=== PATIENT | female | born 1965 | race Caucasian/White ===

== ENCOUNTER 2016-08-23 12:56 | Outpatient (CLI) | payer OTHER | END 2016-08-23 12:57 | disposition home or self-care (01) | DX: M85.89 Other specified disorders of bone density and structure, multiple sites (principal); Z78.0 Asymptomatic menopausal state ==

== ENCOUNTER 2017-05-08 09:35 | Outpatient (CLI) | payer OTHER ==
--- NOTE | 2017-05-08 11:49 | CT Report ---
CT OF THE SINUSES WITHOUT CONTRAST: 05/08/2017 CLINICAL INDICATION: Maxillary sinusitis. TECHNIQUE: Axial CT images of the paranasal sinuses were obtained without contrast. No previous CT is available for comparison. FINDINGS: There is minimal mucosal thickening in the left maxillary sinus. No air fluid levels are p resent. The frontal sinuses, ethmoid air cells, and sphenoid sinus are unremarkable. The ostiomeatal units are patent bilaterally. No osseous destruction is seen. The visualized orbital contents are unr emarkable. IMPRESSION: MINIMAL MUCOSAL THICKENING IN THE LEFT MAXILLARY SINUS. NO EVIDENCE OF ACUTE SINUSITIS. In accordance with CT protocol optimization, one or more of the following dose reduction techniques w ere utilized for this exam: automated exposure control, adjustment of mA and/or KV based on patient size, or use of iterative reconstructive technique. JOB #: [id number] EXT JOB #:[id number]
== END 2017-05-08 09:36 | disposition home or self-care (01) ==
LOC: DI 09:35
PROVIDERS: ATTEND Physician Assistant
DX: J01.01 Acute recurrent maxillary sinusitis (principal)
CPT/HCPCS: 70486

== ENCOUNTER 2017-06-23 08:49 | Outpatient (CLI) | payer OTHER ==
--- NOTE | 2017-06-26 16:23 | Mammography Report ---
DIGITAL SCREENING MAMMOGRAM: 06/23/2017 CLINICAL INDICATION: A 51-year-old nulliparous patient for screening. COMPARISON: 05/2016, 04/2015, 04/2014, 10/2012, 10/2011, 07/2010. TECHNIQUE: Routine CC and MLO projections were obtained of the breasts as well as bilateral laterall y exaggerated craniocaudal views. FINDINGS: Parenchymal tissue within both breasts is heterogeneously dense, which may lower the sensi tivity of mammography; however, there are no dominant masses, suspicious microcalcifications, or seco ndary signs of malignancy. In comparison to the previous studies, there are no significant changes. ASSESSMENT: NO MAMMOGRAPHIC EVIDENCE OF MALIGNANCY. NO SIGNIFICANT INTERVAL CHANGES. RECOMMENDATION: Screening mammography is recommended annually. BIRADS category 1 - negative. STANDARD QUALIFYING STATEMENTS 1. This examination was reviewed with the aid of Computed-Aided Detection (CAD). 2. A negative or benign imaging report should not delay biopsy if clinically suspicious findings are present. Consider surgical consultation if warranted. More than 5% of cancers are not identified by i maging. 3. Dense breasts may obscure an underlying neoplasm. JOB #: [id number] EXT JOB #:[id number]
== END 2017-06-23 08:50 | disposition home or self-care (01) ==
LOC: DI.N 08:49
PROVIDERS: ATTEND Physician Assistant
DX: Z12.31 Encounter for screening mammogram for malignant neoplasm of breast (principal)
CPT/HCPCS: 77067

== ENCOUNTER 2018-07-13 11:33 | Outpatient (CLI) | payer OTHER ==
--- NOTE | 2018-07-17 09:02 | Mammography Report ---
Reason: SCREENING MAMMO Procedure Date: 07/13/2018 Accession Number: [id number] / [id number] Procedure: MGN - Screening Mammo Dig Bilat CPT Code: FULL RESULT: EXAM: Screening Mammo Dig Bilat DATE: 07/13/2018 11:52 AM CLINICAL HISTORY: Screening. No reported personal or family history of breast cancer. TECHNIQUE: Bilateral CC and MLO views were obtained. COMPARISON: 06/23/2017 through 05/16/2014 FINDINGS: The breasts demonstrate heterogeneously dense fibroglandular parenchyma bilaterally. Bilateral breasts: There are no suspicious masses, calcifications or areas of distortion. IMPRESSION: Negative examination RECOMMENDATION: Routine annual screening unless otherwise clinically indicated. BI-RADS CATEGORY 1: Negative STANDARD QUALIFYING STATEMENTS: 1. This examination was reviewed with the aid of Computer-Aided Detection (CAD). 2. A negative or benign imaging report should not preclude biopsy if clinically suspicious findings are present. 3. Dense breasts may obscure an underlying neoplasm. 4. This examination was reviewed without the aid of 3D breast imaging (tomosynthesis).
== END 2018-07-13 11:34 | disposition home or self-care (01) ==
LOC: DI.N 11:33
DX: Z12.31 Encounter for screening mammogram for malignant neoplasm of breast (principal)
CPT/HCPCS: 77067

== ENCOUNTER 2020-04-21 12:37 | Outpatient (CLI) | payer OTHER ==
--- NOTE | 2020-04-22 14:13 | Mammography Report ---
BILATERAL DIGITAL SCREENING MAMMOGRAM 3D/2D: 04/21/2020 CLINICAL: Routine screening. Comparison is made to exams dated: 07/13/2018 mammogram, 06/23/2017 mammogram, 06/06/2016 mammogram, 05/28/2015 mammogram, 05/16/2014 mammogram, and 11/15/2012 mammogram - [facility]. There are scattered fibroglandular elements in both breasts. No significant masses, calcifications, or other findings are seen in either breast. There has been no significant interval change. IMPRESSION: NEGATIVE There is no mammographic evidence of malignancy. A 1 year screening mammogram is recommended. This exam was interpreted at Station ID: [id number]. NOTE: For mammograms, a report in lay terms will be sent to the patient. Approximately 15% of breast malignancies will not be visualized mammographically. In the management of a palpable breast mass, a negative mammogram must not discourage biopsy of a clinically suspicious lesion. Electronically Signed By: Usama Leggett M.D., jr/catarino:04/21/2020 13:19:07 ACR BI-RADS Category 1: Negative 3341F PARENCHYMAL PATTERN: (A) - The breast(s) demonstrate(s) scattered fibroglandular densities. BI-RADS CATEGORY: (1) - 1 RECOMMENDATION: (ANNUAL) - Recommend routine annual screening mammography. [id number] 1 year screening LATERALITY: (B)
== END 2020-04-21 12:38 | disposition home or self-care (01) ==
LOC: DI.N 12:37
PROVIDERS: ATTEND Nurse Practitioner Family
DX: Z12.31 Encounter for screening mammogram for malignant neoplasm of breast (principal)
CPT/HCPCS: 77063; 77067

== ENCOUNTER 2020-05-04 12:11 | Emergency (ER) | payer OTHER ==
--- NOTE | 2020-05-04 14:23 | ED Physician Documentation ---
History of Present Illness - Stated complaint Stated Complaint: LT SIDE PX/BRUISING - Chief complaint Chief Complaint: Trauma Ch/Bk - History obtained from History obtained from: Patient - History of Present Illness Timing: Today Pain level max: 8 Pain level now: 7 - Additonal information Additional information: 54 year old female injured her left shoulder and L thigh When she fell down the stairs at work yesterday. Worse with movement, better with rest. No head, neck, back pain. No loss of consciousness. States has bruising to the left thigh. No loss of bowel or bladder control. Review of Systems Constitutional: denies: Fever, Chills Respiratory: denies: Cough GI: denies: Vomiting, Diarrhea Skin: denies: Rash Musculoskeletal: denies: Neck pain, Back pain Neurologic: denies: Headache PD PAST MEDICAL HISTORY - Past Medical History Past Medical History: Yes Respiratory: Asthma Musculoskeletal: Scoliosis, Other Derm: Other Other Past Medical History: Lumbar Deg disc dx, Atopic dermatitis - Past Surgical History Past Surgical History: Yes Ortho: Other HEENT: Other - Present Medications Home Medications: Ambulatory Orders Medication Instructions Recorded Confirmed HYDROcod/ACETAM 5/325 [[place] 5/325] 1 - 2 ea PO Q6H PRN #14 tablet 05/04/20 Meloxicam [Mobic] 7.5 mg PO BID PRN #20 tablet 05/04/20 - Allergies Allergies/Adverse Reactions: Allergies Allergy/AdvReac Type Severity Reaction Status Date / Time iodine Allergy Anaphylaxis Verified 05/04/20 12:28 - Social History Does the pt smoke?: No Smoking Status: Never smoker Does the pt drink ETOH?: Yes ETOH Use: Wine Does the pt have substance abuse?: No - Immunizations Immunizations are current?: Yes - POLST Patient has POLST: No PD ED PE NORMAL - Vitals Vital signs reviewed: Yes - General General: Alert and oriented X 3, No acute distress - HEENT HEENT: Moist mucous membranes - Neck Neck: Supple, no meningeal sign - Cardiac Cardiac: RRR - Respiratory Respiratory: No respiratory distress, Clear bilaterally - Abdomen Abdomen: Soft, Non tender, Non distended - Back Back: No spinal TTP (No midline tenderness to palpation or percussion. No step- off or deformity.) - Derm Derm: Warm and dry - Extremities Extremities: No calf tenderness / cord - Neuro Neuro: Alert and oriented X 3 - Psych Psych: Normal mood, Normal affect - Free text exam Free text exam: Tender to palpation over the left shoulder. No deformity. Full range of motion present. Tender near the AC joint. No crepitus. Neurovascular intact. Has a 4 x 10 cm ecchymotic area to the posterior left thigh. No tenderness over the hip self. Neurovascular intact. Otherwise normal extremity exam. Results - Vitals Vitals: Vital Signs - 24 hr 05/04/20 05/04/20 05/04/20 12:29 13:23 13:27 Temperature 36.7 C 36.7 C 36.8 C Heart Rate 107 H 107 H 92 Respiratory 18 18 18 Rate Blood Pressure 145/75 H 145/75 H 149/84 H O2 Saturation 99 99 100 05/04/20 05/04/20 05/04/20 14:38 15:56 16:04 Temperature 36.8 C 36.9 C 36.9 C Heart Rate 89 87 87 Respiratory 16 18 18 Rate Blood Pressure 132/71 H 144/81 H 145/80 H O2 Saturation 100 100 100 Oxygen O2 Source Room air - Rads (name of study) L shoulder xray Radiology: Prelim report reviewed, EMP read contemporaneously, See rad report L femur xray Radiology: Prelim report reviewed, EMP read contemporaneously, See rad report PD MEDICAL DECISION MAKING - ED course Complexity details: reviewed results, re-evaluated patient, considered differential, d/w patient ED course: 54-year-old female status post a fall at work yesterday. No significant x-ray findings. Ambulating well. Will prescribe pain medication for home. We will have her follow-up with her doctor for further care. L&I paperwork filled out. Patient counseled regarding signs and symptoms for which I believe and urgent re-evaluation would be necessary. Patient with good understanding of and agreement to plan and is comfortable going home at this time This document was made in part using voice recognition software. While efforts are made to proofread this document, sound alike and grammatical errors may occur. Departure - Departure Disposition: 01 Home, Self Care Clinical Impression: Contusion of soft tissue Condition: Good Instructions: ED Contusion Soft Tissue Follow-Up: SUNIL KITCHEN ARNP [Primary Care Provider] - Within 1 week Prescriptions: Meloxicam [Mobic] 7.5 mg PO BID PRN #20 tablet PRN Reason: Pain HYDROcod/ACETAM 5/325 [[place] 5/325] 1 - 2 ea PO Q6H PRN #14 tablet PRN Reason: Pain Comments: Return if you worsen. Your x-rays do not show any acute abnormality today. You will be very sore for the next several days. Follow-up with your doctor early next week in order to be released back to work. Do not drink alcohol or drive while on narcotic pain medicine. Note that many narcotic pain relievers also contain tylenol/acetaminophen. Please ensure that your total dose of acetaminophen from all sources does not exceed 3 grams (3000mg) per day. You may constipated on this medication, take a stool softener such as "Colace" twice a day while you are on it. Also recommend a ufgm-sjj-essayvn laxative such as senna or MiraLAX any day that you do not have a bowel movement. If you received narcotic pain medication in the emergency department, do not drive or operate machinery for the next 24 hours. Discharge Date/Time: 05/04/20 16:06
[2020-05-04] MEDS ORDERED: MELOXICAM 7.5 MG TABLET PO STA (14:42)
--- NOTE | 2020-05-04 15:36 | XRAY Report ---
PROCEDURE: Femur 2V LT INDICATIONS: fall, L thigh pain TECHNIQUE: 3 views of the femur were acquired. COMPARISON: None. FINDINGS: Bones: No fractures or dislocations. No suspicious bony lesions. Soft tissues: No suspicious soft tissue calcifications or masses. IMPRESSION: No visualized acute fracture or dislocation. However, occult injury cannot be excluded. Recommend angie rt interval imaging follow-up in 7-10 days as clinically indicated for additional evaluation. Reviewed by: Judith Bravo MD on 05/04/2020 3:34 PM PDT Approved by: Judith Bravo MD on 05/04/2020 3:34 PM PDT Station ID: [id number]
--- NOTE | 2020-05-04 15:37 | XRAY Report ---
PROCEDURE: Shoulder 3 View LT INDICATIONS: fall, shoulder pain TECHNIQUE: 3 views of the shoulder were acquired. COMPARISON: None. FINDINGS: Bones: No fractures or dislocations. No suspicious bony lesions. Visualized ribs appear intact. Soft tissues: No suspicious soft tissue calcifications. IMPRESSION: No visualized acute fracture or dislocation. However, occult injury cannot be excluded. Recommend short interval imaging follow-up in 7-10 days as clinically indicated for additional evalua tion. Reviewed by: Judith Bravo MD on 05/04/2020 3:35 PM PDT Approved by: Judith Bravo MD on 05/04/2020 3:35 PM PDT Station ID: [id number]
[2020-05-04 16:06] VITALS: BP 145/80
== END 2020-05-04 16:06 | disposition home or self-care (01) ==
LOC: ED 12:11
DX: S70.12XA Contusion of left thigh, initial encounter (principal); W10.9XXA Fall (on) (from) unspecified stairs and steps, initial encounter; Y99.0 Civilian activity done for income or pay; M25.512 Pain in left shoulder
CPT/HCPCS: 1040M; 73030; 73552; 99284; A9270

== ENCOUNTER 2020-11-26 11:50 | Day surgery (SDC) | payer OTHER ==
--- OUTSIDE RECORDS SUMMARY | 2020-11-26 11:52 | EXTERNAL MEDICAL SUMMARY RPT | Continuity of Care Document ---
:1965 Demographics Phone Unavailable Preferred Language Haitian Marital Status Unknown Spiritism Affiliation Unknown Race Unknown Ethnic Group Unknown Author Organization [place] Address [address] [place] [address] Phone Care Team Providers Name Role Phone [place] Unavailable Unavailable Problems date description facility [id number] [facility] Social History date description facility [id number]
[2020-11-26] MEDS ORDERED: LACTATED RINGERS 1,000 ML IV ONE ×2 (12:15→14:09)
[2020-11-26] MEDS ORDERED: fentaNYL 100 MCG/2 ML VIAL IVP PRN (12:37)
[2020-11-26] MEDS ORDERED: ATROPINE ABBOJECT 1 MG/10 ML SYRINGE IVP PRN (12:37)
[2020-11-26] MEDS ORDERED: NALOXONE 0.4 MG/ML VIAL IVP PRN (12:37)
[2020-11-26] MEDS ORDERED: HYDROmorphone 0.5 MG/0.5 ML SYRINGE IVP PRN (12:37)
[2020-11-26] MEDS ORDERED: MORPHINE 2 MG/ML CARPUJECT IVP PRN (12:37)
[2020-11-26] MEDS ORDERED: ONDANSETRON 4 MG/2 ML VIAL IVP PRN (12:37)
[2020-11-26] MEDS ORDERED: METOCLOPRAMIDE 10 MG/2 ML VIAL IVP PRN (12:37)
[2020-11-26] MEDS ORDERED: ePHEDrine 50 MG/ML VIAL IVP PRN (12:37)
--- NOTE | 2020-11-26 12:37 | ANESTHESIA ---
Pre-Anesthesia VS, & Labs - Diagnosis screening, hemorrhoids - Procedure colonoscopy possible hemorrhoid banding Vital Signs: Temp Pulse Resp BP Pulse Ox 36.5 C 81 18 138/88 H 98 11/26/20 12:02 11/26/20 12:02 11/26/20 12:02 11/26/20 12:02 11/26/20 12:02 Height: 5 ft 1 in Weight (kg): 53.9 kg Body Mass Index: 22.4 BMI Classification: Healthy weight - NPO >8 hours - Is Patient ?: No - Lab Results Lab results reviewed: Yes Home Medications and Allergies Home Medications: Ambulatory Orders Adalimumab [Humira] 40 mg SQ DAILY 11/25/20 Methotrexate [Methotrexate Sodium] 2.5 mg PO DAILY 11/25/20 Cetirizine [ZyrTEC] 10 mg PO DAILY 11/26/20 Adalimumab [Humira] 40 mg SQ DAILY 11/25/20 Methotrexate [Methotrexate Sodium] 2.5 mg PO DAILY 11/25/20 Cetirizine [ZyrTEC] 10 mg PO DAILY 11/26/20 Allergies/Adverse Reactions: Allergies Allergy/AdvReac Type Severity Reaction Status Date / Time iodine Allergy Anaphylaxis Verified 11/25/20 13:02 Latex, Natural Rubber AdvReac Hives Verified 11/26/20 12:00 Anes History & Medical History - Anesthetic History Anesthesia Complications: reports: No previous complications Family history of Anesthesia Complications: Denies Family history of Malignant Hyperthermia: Denies - Medical History Cardiovascular: reports: None Pulmonary: reports: None Gastrointestinal: reports: GI bleed Urinary: reports: None Musculoskeletal: reports: Scoliosis, Chronic back pain Endocrine/Autoimmune: reports: None Skin: reports: Psoriasis Smoking Status: Never smoker - Surgical History Eyes Ears Nose Throat (EENT): reports: Rhinoplasty Orthopedic: reports: Other Exam General: Alert, Oriented x3, Cooperative, No acute distress Dental: WNL Mouth Openin Fingerbreadth Neck Mobility: Normal Mallampati classification: I Respiratory: Lungs clear, Normal breath sounds, No respiratory distress, No accessory muscle use Cardiovascular: Regular rate, Normal S1, Normal S2, No murmurs Plan Anesthesia Type: General, Total IV Consent for Procedure(s) Verified and Reviewed: Yes Code Status: Attempt Resuscitation ASA classification: 2-Mild systemic disease Is this case an emergency?: No
[2020-11-26] MEDS ORDERED: KETOROLAC 30 MG/ML VIAL ONE (12:42)
[2020-11-26] MEDS ORDERED: LACTATED RINGERS 1,000 ML IV SCH (13:00)
[2020-11-26] MEDS ORDERED: PROPOFOL 200 MG/20 ML VIAL IVP ONE (13:46)
[2020-11-26] MEDS ORDERED: LIDOCAINE-MPF 2% 5 ML VIAL ONE (13:46)
--- NOTE | 2020-11-26 14:16 | OPERATIVE REPORT ---
Operative Report - General Procedure Date: 11/26/20 Planned Procedure: EUA with Hemorrhoid Banding Pre-Op Diagnosis: Prolapsing internal hemorrhoids Procedure Performed: EUA with Hemorrhoid Banding Post Op Diagnosis: Prolapsing internal hemorrhoids - Procedure Note Primary Surgeon: Melodie Anesthesia Provider: LUCI Luo Anesthesia Technique: MAC Findings: 3 columns of enlarged internal hemorrhoids Complications: None apparent - Other Other Information/Narrative: Colonoscopy was completed immediately prior to the banding procedure. Timeout was done at the start of the colonoscopy procedure.The patient remained sedated with monitored anesthesia care at this time. All elements of the surgical safety checklist were followed before, during, and after this procedure. The anoscope with obturator was lubricated and placed in the patient's anal canal. The obturator was removed and the slots aligned to allow access to 3 column internal hemorrhoids. The device, the [employer] multi band ligator-short shot-was placed into the anal canal. The tip of the device was placed in contact with the tissue to be treated beginning at the 4 o'clock position. The suction port was closed. A single band was deployed and the suction port released.The band was noted to be in place.We next addressed the hemorrhoid complex at 7:00.The tip of the device was placed in contact with the tissue, the suction port covered, a band deployed, the suction port released. Again we were able to see that the band was in place.We next addressed the hemorrhoid at the 11 o'clock position. This was the smallest of the 3. The tip of the device was placed in contact with the tissue, the suction port covered, a band deployed, the suction port released. Again we were able to see that the band was in place.Examination of the anal count canal revealed all [address] The anoscope was removed and the procedure concluded. The patient tolerated the procedure well. She was allowed awaken from sedation and taken to the postanesthesia care unit in good condition.
[2020-11-26 14:37] VITALS: BP 112/71
--- NOTE | 2020-11-26 15:35 | ANESTHESIA POST OP EVALUATION ---
Anesthesia Post Eval - Post Anesthesia Eval Vitals: Last Vital Signs Temp 36.8 C 11/26/20 14:35 Pulse 96 11/26/20 14:35 Resp 17 11/26/20 14:35 BP 112/71 11/26/20 14:35 Pulse Ox 100 11/26/20 14:35 CV Function Including HR & BP: Stable Pain Control: Satisfactory Nausea & Vomiting: Negative Mental Status: Baseline Respiratory Status: Airway Patent Hydration Status: Satisfactory Anesthesia Complications: None
== END 2020-11-26 11:51 | disposition home or self-care (01) ==
LOC: SDS 11:50
PROVIDERS: ATTEND Surgery
DX: Z12.11 Encounter for screening for malignant neoplasm of colon (principal); K57.30 Diverticulosis of large intestine without perforation or abscess without bleeding; K64.8 Other hemorrhoids; D89.89 Other specified disorders involving the immune mechanism, not elsewhere classified; Z92.83 Personal history of failed moderate sedation
CPT/HCPCS: 45378; 46221; J7120

== ENCOUNTER 2022-03-31 14:26 | Outpatient (CLI) | payer OTHER ==
--- NOTE | 2022-04-01 10:16 | Mammography Report ---
BILATERAL DIGITAL SCREENING MAMMOGRAM 3D/2D: 03/31/2022 CLINICAL: Routine screening. Comparison is made to exams dated: 04/21/2020 mammogram, 07/13/2018 mammogram, 06/23/2017 mammogram, 06/06/2016 mammogram, 05/28/2015 mammogram, and 05/16/2014 mammogram - [facility]. There are scattered areas of fibroglandular density in both breasts (category b / 25%-50% glandular t issue). No significant masses, calcifications, or other findings are seen in either breast. There has been no significant interval change. IMPRESSION: NEGATIVE There is no mammographic evidence of malignancy. A 1 year screening mammogram is recommended. Based on the Tyrer Cuzick model (a risk assessment model) the patients lifetime risk is 8.8% and her 10 year risk is 3.2%. According to the ACR, ACS, and NCCN guidelines, an annual breast MRI exam home g with mammogram is recommended if the patients lifetime risk is 20% or greater. This exam was interpreted at Station ID: [id number]. NOTE: For mammograms, a report in lay terms will be sent to the patient. Approximately 15% of breast malignancies will not be visualized mammographically. In the management of a palpable breast mass, a negative mammogram must not discourage biopsy of a clinically suspicious lesion. Electronically Signed By: Sacha varma/adrirad:04/01/2022 07:11:24 ACR BI-RADS Category 1: Negative 3341F PARENCHYMAL PATTERN: (A) - The breast(s) demonstrate(s) scattered fibroglandular densities. BI-RADS CATEGORY: (1) - 1 RECOMMENDATION: (ANNUAL) - Recommend routine annual screening mammography. [id number] 1 year screening LATERALITY: (B)
== END 2022-03-31 14:27 | disposition home or self-care (01) ==
LOC: DI.N 14:26
DX: Z12.31 Encounter for screening mammogram for malignant neoplasm of breast (principal)

== ENCOUNTER 2023-08-24 10:25 | Outpatient (CLI) | payer OTHER ==
--- NOTE | 2023-08-25 11:44 | Mammography Report ---
BILATERAL DIGITAL SCREENING MAMMOGRAM 3D/2D: 08/24/2023 CLINICAL: Routine screening. Comparison is made to exams dated: 03/31/2022 mammogram, 04/21/2020 mammogram, 07/13/2018 mammogram, mammogram, 06/06/2016 mammogram, and 05/28/2015 mammogram - [facility]. Both breasts are heterogeneously dense, which may obscure small masses (category c / 51-75% glandular tissue). No significant masses, calcifications, or other findings are seen in either breast. There has been no significant interval change. IMPRESSION: NEGATIVE There is no mammographic evidence of malignancy. A 1 year screening mammogram is recommended. Based on the Tyrer Cuzick model (a risk assessment model) the patient's lifetime risk is 12.9% and he r 10 year risk is 5.1%. According to the ACR, ACS, and NCCN guidelines, an annual breast MRI exam marlen ng with mammogram is recommended if the patients lifetime risk is 20% or greater. This exam was interpreted at Station ID: [id number]. NOTE: For mammograms, a report in lay terms will be sent to the patient. Approximately 15% of breast malignancies will not be visualized mammographically. In the management of a palpable breast mass, a negative mammogram must not discourage biopsy of a clinically suspicious lesion. Electronically Signed By: Bebo knapp/[email or web address]:08/24/2023 10:56:55 letter sent: No_Letter ACR BI-RADS Category 1: Negative 3341F PARENCHYMAL PATTERN: (D) - The breast(s) demonstrate(s) heterogeneously dense fibroglandular raymond ruiz. BI-RADS CATEGORY: (1) - 1 Mammogram [id number] 1 year screening LATERALITY: (B)
== END 2023-08-24 10:26 | disposition home or self-care (01) ==
LOC: DI.N 10:25
DX: Z12.31 Encounter for screening mammogram for malignant neoplasm of breast (principal); R92.333 Mammographic heterogeneous density, bilateral breasts